=== PATIENT | female | born 1985 | race Caucasian/White ===

== ENCOUNTER 2025-01-04 06:50 | Emergency (ER) | payer OTHER ==
[~2025-01-04] VITALS: Ht 134.6 cm; Wt 75.6 kg
[2025-01-04 07:03] VITALS: TEMP 98.4
[2025-01-04 07:46] LABS: BASOPHILS % (AUTO) 0.7 % (0.0-2.0); EOSINOPHILS % (AUTO) 2.3 % (1.0-6.0); HEMATOCRIT 43.2 % (36-46); HEMOGLOBIN 14.4 g/dL (12.0-16.0); LYMPHOCYTES # (AUTO) 0.4 K/uL (1.0-4.8); LYMPHOCYTES % (AUTO) 12.8 % (22.0-44.0); MEAN CORPUSCULAR HEMOGLOBIN 30.2 pg (26.0-34.0); MEAN CORPUSCULAR HGB CONC 33.2 G/dL (31.0-37.0); MEAN CORPUSCULAR VOLUME 91 fL (80-100); MONOCYTES # (AUTO) 0.3 K/uL (0.1-1.0); NEUTROPHILS # (AUTO) 2.3 K/uL (1.8-7.7); NEUTROPHILS % (AUTO) 75.2 % (40.0-70.0); PLATELET COUNT (AUTO) 143 K/uL (150-450); RED BLOOD CELL COUNT(AUTO) 4.75 MIL/uL (4.00-5.20); RED CELL DISTRIBUTION WIDTH 12.9 % (11.5-14.5)
[2025-01-04 07:58] LABS: ANION GAP 10 mmol/L (8-16); CALCIUM, TOTAL 8.8 mg/dL (8.8-10.5); CARBON DIOXIDE 26 mmol/L (22-29); CHLORIDE 102 mmol/L (98-107); CREATININE 0.65 mg/dL (0.60-1.30); GLOMERULAR FILTR. RATE CALC > 60 mL/min (>60); GLUCOSE,RANDOM 113 mg/dL (70-110); POTASSIUM 3.2 mmol/L (3.5-5.1); SODIUM SERUM 138 mmol/L (136-145); UREA NITROGEN, BLOOD 7 mg/dL (7-18)
[2025-01-04 08:00] LABS: PROTHROMBIN TIME 10.3 SEC (9.4-11.6)
[2025-01-04 08:08] LABS: CREATINE KINASE, TOTAL ONLY 29 U/L (26-192); TROPONIN I-HIGH SENSITIVITY Less Than 4 ng/L (<51)
[2025-01-04 08:12] LABS: B-TYPE NATRIURETIC PEPTIDE 25 pg/mL (0-100)
[2025-01-04 08:32] LABS: COVID AG,FIA SOURCE NASAL SWAB
[2025-01-04 08:32] LABS: FREE T4 (FREE THYROXINE) 0.94 ng/dL (0.76-1.46); THYROID STIMULATING HORMONE 5.88 uIU/mL (0.36-3.74)
[2025-01-04 09:01] LABS: HCG,QUANTITATIVE < 1 mIU/mL (0-6)
[2025-01-04 09:04] LABS: SARS-COV2 (COVID) ANTIGEN,FIA Negative (Negative)
[2025-01-04 09:05] LABS: INFLUENZA TYPE A NEGATIVE FOR TYPE A (NEGATIVE); INFLUENZA TYPE B NEGATIVE FOR TYPE B (NEGATIVE)
[2025-01-04] MEDS: POTASSIUM CHLORIDE 10% 40 MEQ/30 ML LIQUID UDCUP PO ONE (09:53)
[2025-01-04 11:02] VITALS: BP 105/52; PULSE 86; RESP 14; O2SAT 96
== END 2025-01-04 12:08 | disposition short-term general hospital (02) ==
LOC: EMS 06:54
DX: G40.909 Epilepsy, unspecified, not intractable, without status epilepticus (principal); I10 Essential (primary) hypertension; E03.9 Hypothyroidism, unspecified; Z88.1 Allergy status to other antibiotic agents; Z88.5 Allergy status to narcotic agent; Z79.899 Other long term (current) drug therapy; Z20.822 Contact with and (suspected) exposure to COVID-19
CPT/HCPCS: 70450; 71045; 80048; 82550; 83880; 84439; 84443; 84484; 84702; 85025; 85610; 85730; 87804; 93005; 99285; 36415-L1; 36415-TC